=== PATIENT | male | born 1935 | race Caucasian/White ===

== ENCOUNTER 2017-06-15 10:55 | Outpatient (RCR) | payer MEDICARE, OTHER ==
[2017-05-31 11:53] VITALS: BP_SYST 179; BP_SYST 180; BP_DIAS 80
[2017-05-31 12:02] VITALS: BP 169/75
[2017-05-31 12:09] LABS: PLATELET COUNT, AUTOMATED 156 K/uL (150-450)
[~2017-06-15 10:55] MED LIST: ALLO100T70 PO; ALPH300C2 PO; ALPH50TA7 PO; AMIN1CAP5 PO; ASPI-1471 PO; CALC250T7 PO; CHOL200022 PO; GLUC-198 PO; HYDR12.556 PO; LISI-362 PO; LISI1TAB PO; LUTE20TA PO; NIAC100T35 PO; NIT4 SL; OMEG-11 PO; OMEG300C PO; PRAS10TA PO; PRAV10TA46 PO; PRAV20TA66 PO; [UNRECOGNIZED DRUG - CODE]; [UNRECOGNIZED DRUG - CODE] PO; [UNRECOGNIZED DRUG - OTHER]
[2017-06-15 10:59] VITALS: BP 155/80
[2017-06-15] MEDS ORDERED: AMLO-96 PO (11:05)
--- NOTE | 2017-06-15 17:45 | ONCOLOGY FOLLOW UP NOTE ---
EVENT DATE: June 15, 2017 DIAGNOSES 1. B-cell chronic lymphocytic leukemia. 2. Hypertension. 3. Hyperlipidemia. 4. Coronary artery disease. CHIEF COMPLAINT The patient is here today for followup of his CLL. ONCOLOGY HISTORY The patient is an 82-year-old male, who was having a problem with lymphocytosis , documented since 2007. Will increasing lymphocytosis, he had a flow cytometry study done on 17 February 2010, which did reveal the presence of 2 similar phenotypically distinct monoclonal CD5 positive B-cell population. One of them consistent with Mantle cell lymphoma, and the other clone consistent with CLL or small lymphocytic lymphoma. PET-CT scan done on 29 March 2010 did not reveal any pathologically enlarged or metabolically active adenopathy. Beta-2 microglobulin was mildly elevated at 2.9. Peripheral blood for FISH for CLL showed deletion of the 13a at 14.3, which is a favorable prognostic factor. Cyclin D1 was not detected. The patient was put under observation since then. The patient is here today for followup of his CLL. The patient has some musculoskeletal pain from his statin use. He has epistaxis sometimes and prostatic symptoms. He has a concern about hydrochlorothiazide and high uric acid and the use of allopurinol and also the use of statins. HISTORY OF PRESENT ILLNESS Patient is here today for followup of his CLL. He is complaining of pain in the hips and the right knee. He has also easy bruising, but other than that he is really doing very well. He denies any B symptoms. PAST MEDICAL HISTORY 1. Hypertension. 2. Coronary artery disease status post stenting of the left LAD in 1998. 3. Hyperlipidemia. PAST SURGICAL HISTORY 1. Left hip replacement done on 22 January 2010. 2. LAD stent placement in April 1998. 3. Bone chip removal from right elbow. 4. Benign lump resected on the back of the neck. SOCIAL HISTORY The patient is . He has 3 children, 2 daughters and 1 son. He works at the [employer] and is on leave of absence currently. He drinks about a 6 pack of beer per month. He denies any abuse of tobacco or drugs. FAMILY HISTORY Mother of pancreatic cancer at the age of 89. CURRENT MEDICATIONS 1. Aspirin 81 mg daily. 2. Niacin 100 mg once daily. 3. Alpha-lipoic acid 300 mg once daily. 4. Calcium citrate 1000 mg once daily. 5. Glucosamine/chondroitin sulfate once daily. 6. Fish oil once daily. 7. P-5-P 50 mg once daily. 8. Pantethine 165 mg once daily. 9. Lutein 20 mg once daily. 10. Lisinopril 10 mg twice daily. ALLERGIES No known drug allergies. REVIEW OF SYSTEMS CONSTITUTIONAL: No appetite or weight change. No fever, chills or sweating. No recent infection. HEENT: Ears: No tinnitus or hearing problem. Nose: No runny nose or epistaxis.. Throat: No sore throat or mouth ulcers. Eyes: No diplopia or visual changes. RESPIRATORY: Patient has exertional wheezing sometimes. CARDIOVASCULAR: No chest pain, orthopnea, or paroxysmal nocturnal dyspnea (PND) . No edema. No palpitations. GASTROINTESTINAL: No nausea or vomiting. No diarrhea or constipation. No change in bowel movements. No heartburn or swallowing difficulties. No abdominal pain. No jaundice. No hematemesis, melena or rectal bleeding. GENITOURINARY: No hematuria or dysuria. MUSCULOSKELETAL: Patient has pain in the hips and right knee. NEUROLOGICAL: No tingling or numbness in the hands or feet. No headaches or convulsions. HEMATOLOGIC/LYMPHATIC: He bruises easily. No enlarged lymph nodes. PSYCHIATRIC: No anxiety or depression. PHYSICAL EXAMINATION GENERAL: Looks stable. Well-developed, well-nourished, and in no acute distress. VITAL SIGNS: Blood pressure 155/80, pulse 62 per minute, respirations 16 per minute, temperature 96.9, pulse ox 93% on room air. Head: Atraumatic. No sinus tenderness to palpation. Eyes: No icterus or conjunctivitis. Mouth and throat: No oral thrush or mucositis. NECK: Supple. No cervical or supraclavicular lymphadenopathy. LUNGS: Clear to auscultation and percussion bilaterally. HEART: Regular rate and rhythm. No gallops, murmurs, clicks or rubs. ABDOMEN: Soft and lax. No tenderness. No hepatosplenomegaly. No masses. EXTREMITIES: No cyanosis, clubbing or edema. LYMPHATICS: No peripheral lymphadenopathy. NEUROLOGICAL: Conscious, alert and oriented times three. No focal motor or sensory deficits. PSYCHIATRIC: Mood and affect appear normal. DIAGNOSTIC DATA CBC showed white count of 29.8, hemoglobin 16.3, hematocrit 48.1, platelets 156, 000. BUN 28, creatinine 1.3 and total bilirubin 1.6. LDH is normal at 505. ASSESSMENT 1. B cell chronic lymphocytic leukemia. FISH for chronic lymphocytic leukemia came back positive for the deletion of the long arm of chromosome 13. Cyclin D1 was not detected. His current white count is 29.8, which is down from 30.1 last visit. Patient denies any B symptoms. His platelet count is normal at 156 ,000 and hemoglobin is normal at 16.3. There is no indication of starting treatment for his CLL this visit. I am planning to continue followup. I will see him again in six months with CBC, chem panel, LDH and uric acid. 2. Hyperbilirubinemia. He is getting better. His current bilirubin is 1.6. We will continue to monitor. There is no evidence of hemolysis. His haptoglobin was normal at 145. 3. Hypertension, on treatment. 4. Coronary artery disease, status post heart attack on September 03, 2014. 5. Chronic ulcer disease. PLAN 1. Continue followup. 2. Patient to return in six months with CBC, chem panel, LDH, uric acid. 3. Patient is to contact us for any new concerns or complaints. WARREN
== END 2017-06-30 14:22 | disposition home or self-care (01) ==
LOC: ONC 10:55
PROVIDERS: ATTEND Internal Medicine Hematology
DX: C91.10 Chronic lymphocytic leukemia of B-cell type not having achieved remission (principal); E80.6 Other disorders of bilirubin metabolism; I10 Essential (primary) hypertension; I25.10 Atherosclerotic heart disease of native coronary artery without angina pectoris; E78.5 Hyperlipidemia, unspecified; Z79.899 Other long term (current) drug therapy; Z79.82 Long term (current) use of aspirin
CPT/HCPCS: 36415; 83615; 84550; 85025; G0463; 82040; 82247; 82310; 82374; 82435; 82565; 82947; 84075; 84132; 84155; 84295; 84450; 84460; 84520; 99212

== ENCOUNTER → 2017-12-18 | Outpatient (REF) | payer MEDICARE, OTHER ==
[~2017-12-18] MED LIST changes: +AMLO-111 PO; -CHOL200022 PO; +CHOL200085 PO
== END ==
LOC: ZZSENDIN 12:19
PROVIDERS: ATTEND Internal Medicine Cardiovascular Disease
DX: I25.10 Atherosclerotic heart disease of native coronary artery without angina pectoris (principal)
CPT/HCPCS: 82465; 83718; 84478

== ENCOUNTER 2017-12-21 10:50 | Outpatient (RCR) | payer MEDICARE, OTHER ==
[2017-12-18 10:58] VITALS: BP 168/81
[2017-12-18 11:17] LABS: PLATELET COUNT, AUTOMATED 160 K/uL (150-450)
[2017-12-21 10:58] VITALS: BP 162/71
== END 2017-12-27 09:27 | disposition home or self-care (01) ==
LOC: ONC 10:50
PROVIDERS: ATTEND Internal Medicine Hematology
DX: C91.10 Chronic lymphocytic leukemia of B-cell type not having achieved remission (principal); I25.10 Atherosclerotic heart disease of native coronary artery without angina pectoris
CPT/HCPCS: 36415; 83615; 84550; 85025; G0463; 82040; 82247; 82310; 82374; 82435; 82465; 82565; 82947; 83718; 84075; 84132; 84155; 84295; 84450; 84460; 84478; 84520; 99212

== ENCOUNTER 2018-06-28 10:56 | Outpatient (RCR) | payer MEDICARE, OTHER ==
[2018-06-25 11:29] LABS: PLATELET COUNT, AUTOMATED 153 K/uL (150-450)
[2018-06-25 11:32] VITALS: BP 156/73
[~2018-06-28 10:56] MED LIST changes: -AMLO-111 PO; +AMLO-125 PO; +CHOL200022 PO; -CHOL200085 PO
[2018-06-28 11:05] VITALS: BP 148/77
--- NOTE | 2018-06-29 01:41 | [facility] ONCOLOGY NOTE ---
EVENT DATE: June 28, 2018 DIAGNOSES 1. B-cell chronic lymphocytic leukemia. 2. Hypertension. 3. Hyperlipidemia. 4. Coronary artery disease. CHIEF COMPLAINT The patient is here today for followup of his CLL. ONCOLOGY HISTORY The patient is an 83-year-old male who was having a problem with lymphocytosis, documented since 2007. With increasing lymphocytosis, he had a flow cytometry study done on 17 February 2010 which did reveal the presence of two similar phenotypically distinct monoclonal CD5 positive B-cell population, one of them consistent with Mantle cell lymphoma, and the other clone consistent with CLL or small lymphocytic lymphoma. PET-CT scan done on 29 March 2010 did not reveal any pathologically enlarged or metabolically active adenopathy. Beta-2 microglobulin was mildly elevated at 2.9. Peripheral blood for FISH for CLL showed deletion of the 13a at 14.3, which is a favorable prognostic factor. Cyclin D1 was not detected. The patient was put under observation since then. The patient is here today for followup of his CLL. The patient has some musculoskeletal pain from his statin use. He has epistaxis sometimes, and prostatic symptoms. He has a concern about hydrochlorothiazide and high uric acid and the use of allopurinol and also the use of statins. HISTORY OF PRESENT ILLNESS Patient is here today for followup of his CLL. He is complaining of some leg cramps with allopurinol, which the patient stopped recently, in the past two weeks. Other than that, he is doing really very well. He denies any B symptoms. PAST MEDICAL HISTORY 1. Hypertension. 2. Coronary artery disease, status post stenting of the left LAD in 1998. 3. Hyperlipidemia. PAST SURGICAL HISTORY 1. Left hip replacement done on 22 January 2010. 2. LAD stent placement in April 1998. 3. Bone chip removal from right elbow. 4. Benign lump resected on the back of the neck. SOCIAL HISTORY The patient is . He has three children, two daughters and one son. He works at the [employer] and is on leave of absence currently. He drinks about a six-pack of beer per month. He denies any abuse of tobacco or drugs. FAMILY HISTORY Mother of pancreatic cancer at the age of 89. CURRENT MEDICATIONS 1. Aspirin 81 mg daily. 2. Niacin 100 mg once daily. 3. Alpha-lipoic acid 300 mg once daily. 4. Calcium citrate 1000 mg once daily. 5. Glucosamine/chondroitin sulfate once daily. 6. Fish oil once daily. 7. P-5-P 50 mg once daily. 8. Pantethine 165 mg once daily. 9. Lutein 20 mg once daily. 10. Lisinopril 10 mg twice daily. ALLERGIES No known drug allergies. REVIEW OF SYSTEMS CONSTITUTIONAL: No appetite or weight change. No fever, chills or sweating. No recent infection. HEENT: Ears: No tinnitus or hearing problem. Nose: No nasal discharge or epistaxis. Throat: No sore throat or mouth ulcers. Eyes: No diplopia or visual changes. RESPIRATORY: No shortness of breath. No cough, expectoration or hemoptysis. CARDIOVASCULAR: No chest pain, orthopnea, or paroxysmal nocturnal dyspnea (PND). No edema. No palpitations. GASTROINTESTINAL: No nausea or vomiting. No diarrhea or constipation. No change in bowel movements. No heartburn or swallowing difficulties. No abdominal pain. No jaundice. No hematemesis, melena or rectal bleeding. GENITOURINARY: No hematuria or dysuria. MUSCULOSKELETAL: Patient had some leg cramps, which he thought to be due to allopurinol, which he has stopped for the last two weeks with resolution of these leg cramps. NEUROLOGICAL: No tingling or numbness in the hands or feet. No headaches or convulsions. HEMATOLOGIC/LYMPHATIC: No bleeding or easy bruising. No weakness or fatigue. No enlarged lymph nodes. SKIN: No skin rash or lumps. PSYCHIATRIC: No anxiety or depression. PHYSICAL EXAMINATION GENERAL: Looks stable. Well-developed, well-nourished, and in no acute distress. VITAL SIGNS: Blood pressure 148/77, pulse 58 per minute, respirations 16 per minute, temperature 96.2, pulse oximetry 94% on room air. HEENT: Head: Atraumatic. No sinus tenderness to palpation. Eyes: No icterus or conjunctivitis. Mouth and throat: No oral thrush or mucositis. NECK: Supple. No cervical or supraclavicular lymphadenopathy. LUNGS: Clear to auscultation and percussion bilaterally. HEART: Regular rate and rhythm. No gallops, murmurs, clicks or rubs. ABDOMEN: Soft and lax. No tenderness. No hepatosplenomegaly. No masses. EXTREMITIES: No cyanosis, clubbing or edema. LYMPHATICS: No peripheral lymphadenopathy. NEUROLOGICAL: Conscious, alert and oriented times three. No focal motor or sensory deficits. PSYCHIATRIC: Mood and affect appear normal. SKIN: No skin rash, bruise or purpuric eruption. DIAGNOSTIC DATA CBC showed white count 41.1, hemoglobin 16.3, hematocrit 49.3, platelets 153,000. Absolute lymphocytic count is 37,401, which is up from 27,896. Chem panel is normal except for potassium 5.2, BUN 29, creatinine 1.3, total bilirubin 3.1. ASSESSMENT 1. B-cell chronic lymphocytic leukemia. FISH for chronic lymphocytic leukemia came back positive for deletion of the long arm of chromosome 13. Cyclin D1 was not detected. His current white count is 41.1, which is up from 31.7. His absolute lymphocytic count is 37,401, which is up from 27,896. Patient denies any B symptoms. His platelet count currently is normal at 153,000, and his hemoglobin is normal at 16.3, which is stable. So far, there is no indication for treatment of his chronic lymphocytic leukemia. I am planning to see him again in six months with CBC, chemistry panel, LDH, uric acid. 2. Hyperbilirubinemia. Current bilirubin is 3.1, which is up from 1.7. There was no evidence of hemolysis, and his haptoglobin before was normal at 145. Patient could have Gilbert syndrome. 3. Hypertension, on treatment. 4. Coronary artery disease, status post heart attack September 03, 2014. 5. Chronic ulcer disease. 6. Hypogonadism, and the patient is going to start testosterone therapy. Because of his high hemoglobin and hematocrit, I am planning to check a CBC and uric acid every two months and consider phlebotomy if hematocrit is above 55%. PLAN 1. Continue followup. 2. Patient to return in six months with CBC, chem panel, LDH, uric acid. 3. Check CBC and uric acid every two months. 4. Phlebotomize 500 mL of blood if hematocrit is above 55%. 5. Patient is to contact us for any new concerns or complaints. [facility]
== END 2018-07-25 09:07 | disposition home or self-care (01) ==
LOC: ONC 10:56
PROVIDERS: ATTEND Internal Medicine Hematology
DX: C91.10 Chronic lymphocytic leukemia of B-cell type not having achieved remission (principal); E80.6 Other disorders of bilirubin metabolism; I10 Essential (primary) hypertension; I25.10 Atherosclerotic heart disease of native coronary artery without angina pectoris; E29.1 Testicular hypofunction; Z79.82 Long term (current) use of aspirin; Z79.899 Other long term (current) drug therapy
CPT/HCPCS: 36415; 83615; 84550; 85025; G0463; 82040; 82247; 82310; 82374; 82435; 82565; 82947; 84075; 84132; 84155; 84295; 84450; 84460; 84520; 99212